=== PATIENT | male | born 1960 | race Caucasian/White ===

== ENCOUNTER 2019-02-10 17:00 | Outpatient (CLI) | payer OTHER | END 2019-02-10 17:01 | disposition home or self-care (01) | LOC: SLEEPLAB 17:00 | PROVIDERS: ATTEND Dentist General Practice | DX: G47.33 Obstructive sleep apnea (adult) (pediatric) (principal) | CPT/HCPCS: 95806 ==

== ENCOUNTER 2019-07-13 17:00 | Outpatient (CLI) | payer OTHER | END 2019-07-13 17:01 | disposition home or self-care (01) | LOC: SLEEPLAB 17:00 | PROVIDERS: ATTEND Dentist General Practice | DX: G47.33 Obstructive sleep apnea (adult) (pediatric) (principal) | CPT/HCPCS: 95806 ==

== ENCOUNTER 2025-06-04 10:58 | Outpatient (CLI) | payer BC ==
[2025-06-04] MEDS ORDERED: Iopamidol 370 76% 100 ML VIAL ONE (12:57)
== END 2025-06-04 10:59 | disposition home or self-care (01) ==
LOC: BICCT 10:58 → CT 10:59
PROVIDERS: ATTEND Internal Medicine
DX: E78.5 Hyperlipidemia, unspecified (principal); R10.9 Unspecified abdominal pain; N20.0 Calculus of kidney; K76.89 Other specified diseases of liver; R93.421 Abnormal radiologic findings on diagnostic imaging of right kidney; R93.422 Abnormal radiologic findings on diagnostic imaging of left kidney; Z80.51 Family history of malignant neoplasm of kidney
CPT/HCPCS: 74170; 75571; Q9967